=== PATIENT | male | born 1955 | race Caucasian/White ===

== ENCOUNTER 2017-10-13 17:38 | Inpatient (IN) | payer BC ==
[~2017-10-13] VITALS: Ht 180.3 cm; Wt 80.7 kg
[~2017-10-13 17:38] MED LIST: ANAPROX DS550 M1 PO; CIPRO500 MG PO; MOTRIN600 MG PO; NORCO 5/3251 TABLET PO
[2017-10-13 18:29] LABS: ALBUMIN 4.5 g/dL (3.2-4.8); CHLORIDE 108 mEq/L (99-109); POTASSIUM 3.8 mEq/L (3.7-5.4); SODIUM 142 mEq/L (136-147)
[2017-10-13 18:31] LABS: GLUCOSE 145 mg/dL (70-99)
[2017-10-13 18:32] LABS: TOTAL PROTEIN 7.8 g/dL (6.4-8.3)
[2017-10-13 18:33] LABS: TOTAL BILIRUBIN 0.4 mg/dL (0.0-1.0)
[2017-10-13 18:35] LABS: ALKALINE PHOSPHATASE 76 IU/L (3-129); GFR ESTIMATE (CALCULATED) > 59 mL/min/ (58.99-99999)
[2017-10-13 18:36] LABS: UREA NITROGEN (BUN) 21 mg/dL (9-23)
[2017-10-13 18:37] LABS: AST (GOT) 22 IU/L (2-34)
[2017-10-13 18:38] LABS: ALT (GPT) 26 IU/L (3-49); LIPASE 54 U/L (1.0-51.0)
[2017-10-13 18:44] LABS: TROP-I INTERPRETATION NEGATIVE; TROPONIN-I 0.15 ng/mL (0.0-0.30)
[2017-10-13] MEDS ORDERED: GLUCOPHAGE500 MG PO (18:53)
[2017-10-13] MEDS ORDERED: IBUPROFEN800 MG PO (18:53)
[2017-10-13] MEDS ORDERED: ZANTAC300 MG PO (18:54)
[2017-10-13] MEDS ORDERED: GLIPIZIDE XL10 MG PO (18:54)
[2017-10-13] MEDS ORDERED: VIAGRA50 MG PO (18:54)
[2017-10-13] MEDS ORDERED: DAILY VALUE1 EACH PO (18:54)
[2017-10-13 18:58] LABS: HEMATOCRIT 40.6 % (38.0-50.0); HEMOGLOBIN 14.4 G/DL (12.5-16.6); MCH 30.3 PG (29.0-34.0); MCHC 35.5 G/DL (30.0-36.0); MCV 85.3 FL (86-99); PLATELET COUNT 184 K/uL (156-360); RBC DIS.WIDTH-CV 12.3 % (11.8-14.6); RBC DIS.WIDTH-SD 38.3 % (39-53); RED BLOOD COUNT 4.76 M/uL (4.00-5.50); WHITE BLOOD COUNT 7.3 K/uL (4.1-10.2)
[2017-10-13 21:10] VITALS: BP 151/77
[2017-10-13 23:00] VITALS: BP 128/69
[2017-10-14] VITALS (23 sets, daily range): BP systolic 111–152; BP diastolic 0–104
[2017-10-14 00:53] LABS: TROP-I INTERPRETATION POSITIVE
[2017-10-14 00:55] LABS: TROPONIN-I 5.85 ng/mL (0.0-0.30)
[2017-10-14 07:24] LABS: TROP-I INTERPRETATION POSITIVE; TROPONIN-I 20.19 ng/mL (0.0-0.30)
[2017-10-15] VITALS (16 sets, daily range): BP systolic 110–145; BP diastolic 59–97
[2017-10-15 05:19] LABS: BASOPHIL (%) 0.5 % (0-1); EOSINOPHIL (%) 3.1 % (0-5); EOSINOPHIL COUNT 0.3 K/uL (0-0.3); HEMOGLOBIN 12.7 G/DL (12.5-16.6); IMMATURE GRANULOCYTE (%) 0.4 % (0.0-0.7); LYMPHOCYTE (%) 18.4 % (15-42); LYMPHOCYTE COUNT 1.5 K/uL (1.0-2.8); MCH 29.5 PG (29.0-34.0); MCHC 34.3 G/DL (30.0-36.0); MCV 85.8 FL (86-99); MONOCYTE (%) 8.7 % (3-12); MONOCYTE COUNT 0.7 K/uL (0-0.8); NEUTROPHIL (%) 68.9 % (45-76); NEUTROPHIL COUNT 5.6 K/uL (1.8-6.4); PLATELET COUNT 148 K/uL (156-360); RBC DIS.WIDTH-CV 12.3 % (11.8-14.6); RBC DIS.WIDTH-SD 38.5 % (39-53); RED BLOOD COUNT 4.31 M/uL (4.00-5.50); WHITE BLOOD COUNT 8.1 K/uL (4.1-10.2)
[2017-10-15 05:48] LABS: TROP-I INTERPRETATION POSITIVE; TROPONIN-I 17.46 ng/mL (0.0-0.30)
[2017-10-15 05:52] LABS: CHLORIDE 105 MEQ/L (99-109); CREATININE 0.8 MG/DL (0.6-1.3); GFR ESTIMATE (CALCULATED) > 59 mL/min/ (58.99-99999); GLUCOSE 192 mg/dL (70-99); POTASSIUM 3.8 MEQ/L (3.7-5.4); SODIUM 136 MEQ/L (136-147); UREA NITROGEN (BUN) 15 mg/dL (9-23)
[2017-10-15 07:41] LABS: CKMB RELATIVE INDEX 7.3 (0.0-3.9); CREATINE KINASE 524 IU/L (1-294); TOTAL CK 524 IU/L (1-294)
[2017-10-16 06:00] VITALS: BP 109/68
[2017-10-16 06:21] LABS: TROP-I INTERPRETATION POSITIVE; TROPONIN-I 9.67 ng/mL (0.0-0.30)
[2017-10-16 06:29] LABS: CREATINE KINASE 172 IU/L (1-294); TOTAL CK 172 IU/L (1-294)
[2017-10-16 07:43] LABS: CK-MB 6.5 ng/mL (0.0-4.9); CKMB RELATIVE INDEX 3.8 (0.0-3.9)
[2017-10-16 08:00] VITALS: BP 149/8
[2017-10-16] MEDS ORDERED: EFFIENT10 MG PO (11:50)
[2017-10-16] MEDS ORDERED: ATORVASTATIN CA80 MG PO (11:51)
[2017-10-16] MEDS ORDERED: LOPRESSOR25 MG PO (11:51)
[2017-10-16] MEDS ORDERED: ASPIR-LOW81 MG PO (11:52)
[2017-10-16] MEDS ORDERED: LOSARTAN POTASS25 MG PO (11:52)
[2017-10-16 12:16] LABS: CREATININE 0.9 MG/DL (0.6-1.3); GFR ESTIMATE (CALCULATED) > 59 mL/min/ (58.99-99999)
== END 2017-10-16 13:03 | disposition home or self-care (01) | DRG 247 ==
LOC: EME 17:38 → 4WEST 19:33 → EDOF 19:33 → ENRESERV 19:34 → 4EAST 21:10 → ENRESERV 10-14 12:24 → 4EAST 10-14 12:24 → 4WEST 10-14 15:20 → ENRESERV 10-15 14:41 → 4WEST 10-16 13:03
PROVIDERS: Emergency Medicine; Hospitalist; Internal Medicine Critical Care Medicine; Internal Medicine Interventional Cardiology
DX: I21.4 Non-ST elevation (NSTEMI) myocardial infarction (principal); I23.7 Postinfarction angina; I25.118 Atherosclerotic heart disease of native coronary artery with other forms of angina pectoris; I16.1 Hypertensive emergency; I10 Essential (primary) hypertension; I34.0 Nonrheumatic mitral (valve) insufficiency; E78.5 Hyperlipidemia, unspecified; E11.9 Type 2 diabetes mellitus without complications; F17.200 Nicotine dependence, unspecified, uncomplicated; Z79.84 Long term (current) use of oral hypoglycemic drugs
CPT/HCPCS: 71045; 80048; 80053; 82550; 82553; 82565; 82948; 83690; 84484; 85025; 85027; 85347; 85610; 85730; 86850; 86900; 86901; 87641; 93005; 99281; 99285; C1725; C1769; C1874; C1887; J1644; J1815; J2250; J2405; J3010; J7030; J7040